=== PATIENT | male | born 1945 ===

== ENCOUNTER 2017-11-14 19:48 | Inpatient (IN) | payer OTHER ==
[~2017-11-14] VITALS: Ht 165.1 cm; Wt 81.6 kg
[2017-11-14] MEDS ORDERED: GLIMEPIRIDE4 MG (20:12)
[2017-11-14] MEDS ORDERED: FOLIC ACID1 MG (20:13)
[2017-11-14] MEDS ORDERED: TRANDOLAPRIL4 MG (20:13)
[2017-11-14] MEDS ORDERED: PLAVIX75 MG (20:13)
[2017-11-14] MEDS ORDERED: VERAPAMIL ER240 MG (20:13)
[2017-11-14] MEDS ORDERED: TAMS0.4C (20:14)
[2017-11-17] MEDS ORDERED: HumaLOG 100 UNIT/1 M SUBCUTANEO (17:27)
[2017-11-17] MEDS ORDERED: ASA-EC81 MG PO (17:27)
[2017-11-17] MEDS ORDERED: TAMSULOSIN HCL0.4 MG PO (17:27)
[2017-11-17] MEDS ORDERED: HUMULIN 70100 UNIT/2 SUBCUTANEO (17:27)
[2017-11-17] MEDS ORDERED: FOLIC ACID1 MG PO (17:27)
[2017-11-17] MEDS ORDERED: NEURONTIN300 MG PO (17:27)
[2017-11-17] MEDS ORDERED: CORTISPORIN EAR10 M1 OT (17:27)
[2017-11-17] MEDS ORDERED: Calan Sr 240MG TABLE PO (17:27)
[2017-11-17] MEDS ORDERED: CARdura 2MG TABLET PO (17:27)
[2017-11-17] MEDS ORDERED: LIPITOR40 MG PO (17:27)
[2017-11-17] MEDS ORDERED: CLOPIDOGREL BIS75 MG PO (17:27)
== END 2017-11-17 18:35 | disposition home or self-care (01) | DRG 65 ==
LOC: ER 19:48 → SEC-K 11-15 13:49 → MEDJ 11-15 13:49
PROC: B030YZZ Magnetic Resonance Imaging (MRI) of Brain using Other Contrast (ICD-10-PCS; principal; 2017-11-15)
PROC: B345ZZZ Ultrasonography of Bilateral Common Carotid Arteries (ICD-10-PCS; 2017-11-15)
PROC: B246ZZZ Ultrasonography of Right and Left Heart (ICD-10-PCS; 2017-11-15)
PROC: B348ZZZ Ultrasonography of Bilateral Internal Carotid Arteries (ICD-10-PCS; 2017-11-15)
DX: I63.59 Cerebral infarction due to unspecified occlusion or stenosis of other cerebral artery (principal); G81.94 Hemiplegia, unspecified affecting left nondominant side; G45.1 Carotid artery syndrome (hemispheric); I10 Essential (primary) hypertension; H60.8X2 Other otitis externa, left ear; F17.290 Nicotine dependence, other tobacco product, uncomplicated; E11.65 Type 2 diabetes mellitus with hyperglycemia; R47.81 Slurred speech
CPT/HCPCS: 70545

== ENCOUNTER 2018-02-11 17:26 | Emergency (ER) | payer OTHER ==
[~2018-02-11] VITALS: Ht 167.6 cm; Wt 71.7 kg
[~2018-02-11 17:26] MED LIST: ASA-EC81 MG PO; CARdura 2MG TABLET PO; CLOPIDOGREL BIS75 MG PO; CORTISPORIN EAR10 M1 OT; Calan Sr 240MG TABLE PO; FOLIC ACID1 MG; FOLIC ACID1 MG PO; GLIMEPIRIDE4 MG; HUMULIN 70100 UNIT/2 SUBCUTANEO; HumaLOG 100 UNIT/1 M SUBCUTANEO; LIPITOR40 MG PO; NEURONTIN300 MG PO; PLAVIX75 MG; TAMS0.4C; TAMSULOSIN HCL0.4 MG PO; TRANDOLAPRIL4 MG; VERAPAMIL ER240 MG
== END 2018-02-11 21:08 | disposition home or self-care (01) ==
LOC: ER 17:26
DX: M62.830 Muscle spasm of back (principal); M54.5 Low back pain; M25.552 Pain in left hip

== ENCOUNTER 2018-06-14 14:22 | Emergency (ER) | payer OTHER ==
[~2018-06-14] VITALS: Ht 170.2 cm; Wt 90.7 kg
[2018-06-14] MEDS ORDERED: ULTRACET PO (16:56)
== END 2018-06-14 17:09 | disposition home or self-care (01) ==
LOC: ER 14:22
DX: M62.838 Other muscle spasm (principal)

== ENCOUNTER 2019-01-17 09:23 | Emergency (ER) | payer OTHER ==
[~2019-01-17] VITALS: Ht 167.6 cm; Wt 90.7 kg
[~2019-01-17 09:23] MED LIST changes: +ULTRACET PO
== END 2019-01-17 13:07 | disposition home or self-care (01) ==
LOC: ER 09:23
DX: S00.83XA Contusion of other part of head, initial encounter (principal); S70.02XA Contusion of left hip, initial encounter; S70.01XA Contusion of right hip, initial encounter; S30.0XXA Contusion of lower back and pelvis, initial encounter; W07.XXXA Fall from chair, initial encounter; Y93.89 Activity, other specified; Y92.098 Other place in other non-institutional residence as the place of occurrence of the external cause; Y99.8 Other external cause status

== ENCOUNTER 2023-04-25 20:21 | Emergency (ER) | payer OTHER ==
[~2023-04-25] VITALS: Ht 167.6 cm; Wt 81.6 kg
== END 2023-04-26 01:58 | disposition home or self-care (01) ==
LOC: ER 20:21
DX: K03.81 Cracked tooth (principal)
CPT/HCPCS: 96372; 99284; J1885